=== PATIENT | female | born 1955 | race Caucasian/White ===

== ENCOUNTER 2020-12-20 00:55 | Emergency (ER) | payer MEDICARE ==
[2020-12-20] MEDS ORDERED: Fentanyl 100 MCG/2 ML VIAL ONE ×2 (01:39→03:34)
[2020-12-20] MEDS ORDERED: Pantoprazole 40 MG VIAL ONE (01:39)
[2020-12-20 01:40] LABS: #Basophils 0.1 thou/uL (0.0-0.2); #Eosinphils 0.4 thou/uL (0.0-0.7); #Lymphocytes 3.2 thou/uL (1.20-3.40); #Monocytes 0.9 thou/uL (0.11-0.59); #Neutrophils 9.1 thou/uL (1.40-6.50); %Eosinophils 2.8 % (0.0-10.0); %Lymphocytes 23.1 % (21.0-51.0); %Monocytes 6.9 % (0.0-10.0); %Neutrophils 66.3 % (42.0-75.0); Hemoglobin 13.4 g/dL (12.0-16.0); Mean Corpuscular HGB CONC 30.1 g/dL (32.0-36.0); Mean Corpuscular Hemoglobin 25.9 pg (27.0-31.0); Mean Corpuscular Volume 86.2 fL (78.0-98.0); Mean Platelet Volume 8.4 fL (7.4-10.4); Platelet Count 392 thou/uL (130-400); RBC Distribution Width 15.1 % (11.5-14.5); Red Blood Cell (RBC) Count 5.15 mill/uL (4.20-5.40); White Blood Cell (WBC) Count 13.7 thou/uL (4.8-10.8)
[2020-12-20 01:57] LABS: Bilirubin Negative (Negative); Blood, Urine Negative (Negative); Clarity Clear (Clear); Glucose, Urine (Dipstick) Negative (Negative); Ketone, Urine Negative (Negative); Leukocyte Small (Negative); Nitrite Negative (Negative); Protein, Urine (Dipstick) 30 mg/dL (Neg-Trace); Specific Gravity, Urine 1.015 (1.005-1.030); Urobilinogen 0.2 mg/dL (Less than 2); pH, Urine 8.5 (5.0-9.0)
[2020-12-20 02:01] LABS: ALT (SGPT) 26 U/L (8-55); AST (SGOT) 29 U/L (5-34); Albumin 4.4 g/dL (3.4-4.8); Alkaline Phosphatase 106 U/L (40-110); Anion Gap 20 mmol/L (10-20); BUN (Urea Nitrogen) 16 mg/dL (9.8-20.1); Bilirubin, Total 0.4 mg/dL (0.2-1.2); Calc. Creatinine Clearance 0 mL/min (70-130); Calcium 10.4 mg/dL (7.8-10.44); Chloride 104 mmol/L (98-107); Globulin 3.5 g/dL (2.4-3.5); Glucose 118 mg/dL (80-115); Lipase 11 U/L (8-78); Potassium 4.5 mmol/L (3.5-5.1); Protein, Total 7.9 g/dL (5.8-8.1); Sodium 144 mmol/L (136-145)
[2020-12-20 02:07] LABS: Bacteria/HPF 1+ HPF (None Seen); Mucous/LPF 2+ LPF (<2+); RBC/HPF 0-3 HPF (0-3); Transitional Epithelial 0-3 HPF (None Seen)
[2020-12-20] MEDS ORDERED: cefTRIAXone\\ROCEPHIN 1 GM VIAL ONE (02:40)
[2020-12-20] MEDS ORDERED: Sodium Chloride 0.9% 100 ML ONE (02:40)
[2020-12-20 02:52] LABS: Carbon Dioxide 26 mmol/L (23-31)
[2020-12-20] MEDS ORDERED: Sodium Chloride 0.9% 1,000 ML ONE (03:23)
[2020-12-20 04:17] LABS: SARS-CoV-2 NAA Rapid Test Not Detected (NotDetected)
[2020-12-20] MEDS ORDERED: Iopamidol 370 76% 100 ML VIAL ONE (10:10)
== END 2020-12-20 03:58 | disposition short-term general hospital (02) ==
LOC: MADERS 00:55
DX: K56.609 Unspecified intestinal obstruction, unspecified as to partial versus complete obstruction (principal); N39.0 Urinary tract infection, site not specified; K21.9 Gastro-esophageal reflux disease without esophagitis; Z20.822 Contact with and (suspected) exposure to COVID-19
CPT/HCPCS: 71046; 74177; 80053; 81003; 81015; 83605; 83690; 84484; 85025; 87086; 93005; 94760; 96374; 96375; 96376; C9113; J0696; J3010; J3490; J7050; Q9967; U0002